=== PATIENT | female | born 1945 | race Caucasian/White ===

== ENCOUNTER 2017-11-19 23:29 | Emergency (ER) | payer MEDICARE, OTHER ==
--- NOTE | 2017-11-20 00:16 | ED ---
Throat Pain/Nasal Congestion - HPI Summary HPI Summary: A 72 y/o female presents to ED c/o left eye swelling/itching reaching 1/10 in severity. As per triage, "Pt stated that left eye started to itch and then started to swell up. Pt states almost no pain but maybe some pressure. Pt states no vision loss or changes". According to the patient, she is in no pain, but she feels pressure whenever she blinks her left eye. She stated that it started out as itching, but a couple hours later it started to fill up. Patient has taken no blood pressure medication. - History of Current Complaint Chief Complaint: EDEyeProblem Time Seen by Provider: 11/20/17 00:03 Hx Obtained From: Patient Onset/Duration: Sudden Onset, Still Present, Worse Since Severity: Mild - 10 Associated Signs And Symptoms: Positive: Negative Cough: None - Allergies/Home Medications Allergies/Adverse Reactions: Allergies Allergy/AdvReac Type Severity Reaction Status Date / Time No Known Allergies Allergy Verified 11/19/17 23:35 PMH/Surg Hx/FS Hx/Imm Hx Endocrine/Hematology History: Denies: Hx Diabetes Cardiovascular History: Denies: Hx Hypertension Respiratory History: Reports: Hx Asthma Musculoskeletal History: Denies: Hx Osteoporosis - Cancer History Hx Chemotherapy: No Hx Radiation Therapy: No - Surgical History Surgery Procedure, Year, and Place: RT SHOULDER, RT BREAST Bx Infectious Disease History: No Infectious Disease History: Denies: Traveled Outside the [place] in Last 30 Days - Family History Known Family History: Positive: Other - NEGATIVE: [place] and CV[place] Negative: Hypertension, Diabetes - Social History Alcohol Use: None Substance Use Type: Reports: None Smoking Status (MU): Never Smoked Tobacco Review of Systems Negative: Fever Positive: Erythema, Other - POSITIVE: Swelling All Other Systems Reviewed And Are Negative: Yes Physical Exam - Summary Physical Exam Summary: VITAL SIGNS: Reviewed. GENERAL: Patient is a well-developed and nourished female who is lying comfortable in the stretcher. Patient is not in any acute respiratory distress. HEAD AND FACE: No signs of trauma. No ecchymosis, hematomas or skull depressions. No sinus tenderness. EYES: Left conjunctival edema with mild conjunctival injection. No evidence of foreign body. Patient reports no pain, but is in mild discomfort. EARS: Hearing grossly intact. Ear canals and tympanic membranes are within normal limits. MOUTH: Oropharynx within normal limits. NECK: Supple, trachea is midline, no adenopathy, no JVD, no carotid bruit, no c- spine tenderness, neck with full ROM. CHEST: Symmetric, no tenderness at palpation LUNGS: Clear to auscultation bilaterally. No wheezing or crackles. CVS: Regular rate and rhythm, S1 and S2 present, no murmurs or gallops appreciated. ABDOMEN: Soft, non-tender. No signs of distention. No rebound no guarding, and no masses palpated. Bowel sounds are normal. EXTREMITIES: FROM in all major joints, no edema, no cyanosis or clubbing. NEURO: Alert and oriented x 3. No acute neurological deficits. Speech is normal and follows commands. SKIN: Dry and warm Triage Information Reviewed: Yes Vital Signs On Initial Exam: Initial Vitals Temp Pulse Resp BP Pulse Ox 98.1 F 116 18 168/89 98 11/19/17 23:33 11/19/17 23:33 11/19/17 23:33 11/19/17 23:33 11/19/17 23:33 Vital Signs Reviewed: Yes Diagnostics - Vital Signs Vital Signs Temp Pulse Resp BP Pulse Ox 11/19/17 23:33 98.1 F 116 18 168/89 98 - Laboratory Lab Statement: Any lab studies that have been ordered have been reviewed, and results considered in the medical decision making process. EENT Course/Dx - Course Course Of Treatment: A 72 y/o female presents to ED c/o left eye swelling/ itching reaching 1/10 in severity. No laboratory scans were done. No blood work was done. In the ED course, the patient recieved Naphcon-A and Tobradex. Patient will be discharged with a diagnosis of allergic conjunctivitis. Patient is to follow up with ophthalmology tomorrow. Patient is to use 1 drop of Naphazoline in left eye QID. Patient is to use 1 drop of Tobramycin in left eye Q4H. Patient is agreeable with this plan. - Diagnoses Provider Diagnoses: Allergic conjunctivitis Discharge - Sign-Out/Discharge Documenting (check all that apply): Patient Departure - DISCHARGE - Discharge Plan Condition: Stable Disposition: HOME Patient Education Materials: Conjunctivitis (ED) Referrals: Karlene Brewer MD [Primary Care Provider] - Regulo Fernandez MD [Medical Doctor] - 1 Day Additional Instructions: FOLLOW UP WITH OPHTHALMOLOGY TOMORROW. ADD 1 DROP NAPHAZOLINE TO LEFT EYE EVERY 4 TIMES PER DAY (QID). ADD 1 DROP OF TOBRAMYCIN TO LEFT EYE EVERY 4 HOURS (Q4H). RETURN TO ED FOR ANY NEW OR WORSENING SYMPTOMS. - Attestation Statements Document Initiated by Scribe: Yes Documenting Scribe: Isaiah Cooper Provider For Whom Scribe is Documenting (Include Credential): Diya Ibarra MD Scribe Attestation: Isaiah Ricks, scribed for Diya Ibarra MD on 11/20/17 at 0021.
[2017-11-20] MEDS ORDERED: Tobramycin/Dexameth OPTH.SUSP* 2.5 M L BTL LEFT EYE SCH (00:30)
[2017-11-20 00:38] VITALS: BP 149/76
[2017-11-20] MEDS ORDERED: Naphazoline/Pheniramine OPTH* 5 ML BTL LEFT EYE SCH (09:00)
== END 2017-11-20 00:37 | disposition home or self-care (01) ==
LOC: ED 23:29
DX: H10.12 Acute atopic conjunctivitis, left eye (principal)
CPT/HCPCS: 99282; A9270-GY